=== PATIENT | male | born 1980 | race Caucasian/White ===

== ENCOUNTER 2020-08-11 22:43 | Emergency (ER) | payer OTHER ==
[2020-08-11 23:47] LABS: BASOPHIL 0.6 % (0-2); EOSINOPHIL 3.3 % (0-5); HCT 45.3 % (42.0-52.0); HGB 15.9 g/dl (13.2-18.0); LYMPHOCYTE 35.9 % (15-48); MCH 31.9 pg (25.0-31.0); MCHC 35.1 g/dL (32.0-36.0); MCV 90.8 fL (78.0-100.0); MPV 12.7 fL (6.0-9.5); NEUTROPHIL 52.8 % (41-80); NRBC 0; PLT 178 K/uL (150-400); RBC 4.99 M/uL (4.70-6.00); RDW 13.2 % (11.5-14.0); WBC 12.8 K/uL (4.0-10.5)
[2020-08-11 23:51] LABS: INR 1.03 (0.9-1.2); PROTHROMBIN TIME 12.8 SECONDS (11.4-13.6); PTT 24.1 SECONDS (22.2-34.7)
[2020-08-12 00:06] LABS: ALBUMIN 3.9 g/dL (3.4-5.0); BILIRUBIN - TOTAL 0.6 mg/dL (0.2-1.0); GLOBULIN (CALCULATION) 3.6 g/dL; MAGNESIUM 1.9 mg/dL (1.8-2.4); POTASSIUM 3.3 mmol/L (3.5-5.1); TOTAL PROTEIN 7.5 g/dL (6.4-8.2)
== END 2020-08-12 01:25 | disposition home or self-care (01) ==
LOC: FER 22:43
PROVIDERS: Emergency Medicine
DX: G40.409 Other generalized epilepsy and epileptic syndromes, not intractable, without status epilepticus (principal)
CPT/HCPCS: 36415; 70450; 80053; 83605; 83735; 84443; 84484; 85025; 85610; 85730; 93005; J7030